=== PATIENT | female | born 1965 | race Caucasian/White ===

== ENCOUNTER → 2016-10-24 | Outpatient (CLI) | payer OTHER ==
--- NOTE | 2016-10-24 17:28 | DX ---
PA and lateral chest x-ray 1604 hours. History: Renal cell cancer on chemotherapy with worsening dyspnea. Evaluate for pneumonitis. Previous history of asthma. Findings: Comparison to July 11, 2016. There has been interval almost complete resolution of bilateral pulmonary nodules previously identifi ed. There is no consolidation, effusion, or pneumothorax. No significant interstitial thickening is s een. Peribronchial markings are normal. PICC line remains in place right arm approach. Heart size and pulmonary vasculature are normal. Osseous structures are unchanged. Impression: 1. Almost complete resolution of previously identified extensive bilateral pulmonary nodules. 2. No underlying interstitial lung disease appreciated.
== END ==
LOC: FIMAGING 15:59
DX: R06.00 Dyspnea, unspecified (principal); C64.9 Malignant neoplasm of unspecified kidney, except renal pelvis

== ENCOUNTER 2016-12-16 06:23 | Day surgery (SDC) | payer OTHER ==
--- NOTE | 2016-12-12 17:11 | GHP ---
[f rep st] PREOP HISTORY AND PHYSICAL DATE OF ADMISSION: 12/16/2016 DATE OF SURGERY: 12/16/2016. HISTORY OF PRESENT ILLNESS: The patient is a 51-year-old woman with left renal cell carcinoma. She has been receiving chemotherapy through a PICC line. She presents at this time for power port plac ement. She is on Eliquis for history of bilateral PEs as prescribed by her oncologist Dr. Sepulveda. PAST MEDICAL HISTORY: Galdamez's esophagus, COPD, depression, type 2 diabetes, fatty liver disease, fibromyalgia, GERD, hyperlipidemia, hypertension, IgA nephropathy, irritable blood bowel syndrome, m etastatic renal cell carcinoma, neuritis, obesity, reactive airway disease, sleep apnea. PAST SURGICAL HISTORY: Left nephrectomy, pilonidal cystectomy. MEDICATIONS: Albuterol, cyclobenzaprine, Dulera, Eliquis, fluoxetine, Lyme, lisinopril, metformin, omeprazole, oxycodone, ProAir, simvastatin. ALLERGIES: Sulfonamide, sulfonylureas. FAMILY HISTORY: She reports a family history of coronary artery disease, strokes, depression, type 2 diabetes, hypertension, lung cancer, osteoporosis. SOCIAL HISTORY: She is a former smoker. She has 4 children. She reports rare alcohol use. She de nies recreational drug use. REVIEW OF SYSTEMS: A 10-point review of systems negative aside from HPI. PHYSICAL EXAMINATION: GENERAL: Well-developed, well-nourished woman in no acute distress. HEENT: Normocephalic, atraumatic. No hearing deficits. Pupils equal and round. No scleral icterus. Muc ous membranes moist. NECK: Trachea midline. LUNGS: Clear to auscultation bilaterally. No increa sed work of breathing. CARDIOVASCULAR: Regular rate and rhythm. No peripheral edema. ABDOMEN: S oft, nondistended, nontender. SKIN: Warm and dry. PSYCHIATRIC: Mood and affect normal. IMPRESSION AND PLAN: The patient is a 51-year-old woman with left renal cell carcinoma who requires a port for chemotherapy. We will attempt a right-sided IJ approach. We discussed the benefit of p ort placement, including easier access for chemotherapy. We discussed risks including but not limit ed to stroke, heart attack, , blood clots, infection, bleeding and pneumothorax. We discussed that if the port becomes infected, it will need to be removed. She had her questions answered to he r satisfaction and wishes to proceed. Bridging of anticoagulation to be discussed with her oncologi st, Dr. Sepulveda. /[id number]/MODL
[~2016-12-16 06:23] MED LIST: ceFAZolin 2 GM/DEXTROSE 100 ML IV ONE
[2016-12-16] MEDS ORDERED: MIDAZOLAM 2 MG/2 ML VIAL ONE (08:31)
[2016-12-16] MEDS ORDERED: fentaNYL 100 MCG/2 ML INJ ONE ×2 (08:38→11:02)
[2016-12-16] MEDS ORDERED: PROPOFOL/EMULSION 500 MG/50 ML BOTTLE IV ONE ×3 (08:39→10:06)
[2016-12-16] MEDS ORDERED: SKIN ADHESIVE (DERMABOND) 1 EACH TP ONE (08:40)
[2016-12-16] MEDS ORDERED: BUPIVACAINE 0.5% 30 ML SDV ONE (08:41)
[2016-12-16] MEDS ORDERED: oxyCODONE IR 5 MG TAB PO PRN (12:03)
--- NOTE | 2016-12-17 15:12 | GOP ---
[f rep st] OPERATIVE REPORT DATE OF OPERATION: 12/16/2016 SURGEON: Zulma Soria MD CERTIFIED ORTHOTIST/PEDORTHIST: Verenice Martinez MD, for technical expertise and timely completion of the case. ANESTHESIA: Monitored anesthesia care with IV sedation. ANESTHESIOLOGIST: Damon Beal MD. PREOPERATIVE DIAGNOSIS: Renal cancer. POSTOPERATIVE DIAGNOSIS: Renal cancer. PROCEDURE PERFORMED: Ultrasound guided left internal jugular PowerPort placement. FINDINGS: Very difficult port placement with difficulty getting the catheter to drop from the innominate into the superior vena cava. Ultimately this was successful. SPECIMENS: None. ESTIMATED BLOOD LOSS: 100 cc. INDICATIONS: The patient is a 51-year-old woman with renal cell carcinoma who requires a port for chemotherapy. DESCRIPTION OF PROCEDURE: The patient was brought into the operating room, placed supine on the table, and monitored anesthesia care with IV sedation was performed. I infiltrated her neck and chest with 0.5% Marcaine prior to making an incision. Under ultrasound guidance, I identified and accessed the left internal jugular vein. This required 3 attempts to get dark return of blood flow. I threaded the wire and removed the needle. I created a pocket to accommodate the port in the left chest. Using several maneuvers I was able to tunnel the catheter up to the insertion site. Under fluoroscopy, I measured the catheter and cut it to size. Next, I placed a dilator and sheath over the wire. I then removed the wire and the dilator. I threaded the catheter through the sheath, but it was not passing into the superior vena cava. I attempted several maneuvers moving her head and shoulder in order to release this. I then removed the catheter. I placed a Glidewire through the sheath and removed the sheath. I then placed a 10-Irish catheter over this area and again tried to direct the catheter through the sheath. Again, this was unsuccessful. I called my colleague Dr. Verenice Martinez to come in and assist. Again, we placed the Glidewire through the sheath and removed the sheath and held pressure. We removed the old port. We obtained a new catheter. I pulled the Glidewire up to the neck incision. Then we placed a longer dilator, over the wire in the neck that was able to come down and make the corner to the SVC easier. The catheter was then threaded through this and the sheath pulled, peeled away. The catheter was in the IVC. I tunneled the catheter to the chest pocket. Then we pulled the catheter back and cut it to size. Next, we connected it to the port in the left chest. I maneuvered the catheter so that the blood would withdraw easily. It was then flushed with heparin. The pocket was closed with 3-0 Vicryl followed by 4-0 Monocryl. The neck incision closed with 4-0 Monocryl. Dermabond applied. She was awakened in the operating room, transferred to PACU in stable condition. The post chest x-ray showed the port in excellent position without evidence of pneumothorax. /[id number]/MODL MTDD
== END 2016-12-16 12:30 | disposition home or self-care (01) ==
LOC: FSGY 06:23
PROVIDERS: ATTEND Surgery
DX: Z45.2 Encounter for adjustment and management of vascular access device (principal); C64.2 Malignant neoplasm of left kidney, except renal pelvis; Z90.5 Acquired absence of kidney; Z86.711 Personal history of pulmonary embolism; Z79.01 Long term (current) use of anticoagulants; Z87.891 Personal history of nicotine dependence
CPT/HCPCS: 36561; 71010; 76001; C1769; C1788; J0690; J2250; J2704; J3010

== ENCOUNTER 2017-01-24 10:42 | Emergency (ER) | payer OTHER ==
[2017-01-24 11:18] LABS: % IMMATURE GRANULYOCYTES 0.3 % (0.0-1.1); ABSOLUTE IMMATURE GRANULOCYTES 0.03 10^3/uL (0.00-0.10); ABSOLUTE NRBC COUNT 0.02 10^3/uL (0-0.01); ADD DIFF? NO; ADD MORPH? NO; ADD SCAN? NO; ATYPICAL LYMPHOCYTE FLAG 10 (0-99); FRAGMENT RBC FLAG 0 (0-99); HEMOGLOBIN 13.1 g/dL (12.6-16.3); LEFT SHIFT FLG 0 (0-99); LIPEMIA HEMOLYSIS FLAG 90 (0-99); MEAN CELL HEMOGLOBIN 31.9 pg (27.9-34.1); MEAN CELL HEMOGLOBIN CONCENTR. 34.5 g/dL (32.4-36.7); MEAN CELL VOLUME 92.5 fL (81.5-99.8); MEAN PLATELET VOLUME 10.1 fL (8.7-11.7); NRBC-AUTO% 0.2 % (0.0-0.2); PLATELET CLUMPS FLAG 0 (0-99); PLATELET COUNT 282 10^3/uL (150-400); RED BLOOD CELL COUNT 4.11 10^6/uL (4.18-5.33); RED CELL DISTRIBUTION WIDTH 13.5 % (11.5-15.2)
--- NOTE | 2017-01-24 11:18 | EDPHY ---
H & P Smoking Status: Former smoker Time Seen by Provider: 01/24/17 10:52 HPI/ROS: CHIEF COMPLAINT: Dyspnea, chest pain HISTORY OF PRESENT ILLNESS: 51-year-old female presents to the emergency department by private vehicle with her complaining of ongoing shortness of breath. Patient has a history of renal cell carcinoma and had her last infusion of immunotherapy 8 days ago. She states that she has a history of asthma as well and sometimes when she has her immunotherapy infusion, she develops an exacerbation of her asthma. She has had ongoing cough. She however has had more pain in her chest and more shortness of breath over last 2- 3 days. No fevers or chills. No abdominal pain. She has cramping in her lower legs. She has had a history of pulmonary embolism 1 year ago and is on Eliquis. REVIEW OF SYSTEMS: Constitutional: No fever, no chills. Eyes: No double or blurry vision. ENT: No sore throat. Respiratory: cough, shortness of breath Cardiac: chest pain. Gastrointestinal: No abdominal pain, vomiting or diarrhea. Genitourinary: No dysuria. Musculoskeletal: No neck or back pain. Skin: No rashes. Neurological: No headache. (Solitario Luis) Past Medical/Surgical History: Renal cell carcinoma, pulmonary embolism, left nephrectomy, asthma, home oxygen at night (Solitario Luis) Social History: (Solitario Luis) Physical Exam: General Appearance: Alert, no distress. 91% on room air. Eyes: Pupils equal and round. Extraocular motions are all intact. ENT: Mouth: Mucous membranes moist. Respiratory: Diffuse expiratory wheezing throughout. No rales. No respiratory distress. Cardiovascular: Regular rate and rhythm. Gastrointestinal: Abdomen is soft and nontender, no masses, no rebound or guarding, bowel sounds normal. Neurological: Alert and oriented x 3, cranial nerves II through XII grossly intact Skin: Warm and dry, no rashes. Musculoskeletal: Nontender to palpate along the cervical, thoracic or lumbar spine. Neck is supple. Extremities: Full range of motion and no peripheral edema. Psychiatric: Patient is oriented X 3, there is no agitation. (Solitario Luis) Constitutional: Initial Vital Signs Temperature (C) 36.5 C 01/24/17 10:48 Heart Rate 80 01/24/17 10:48 Respiratory Rate 22 H 01/24/17 10:48 Blood Pressure 130/62 H 01/24/17 10:48 O2 Sat (%) 91 L 01/24/17 10:48 O2 Delivery Mode Room Air O2 (L/minute) 2 Allergies/Adverse Reactions: aspartame Allergy (Verified 01/24/17 10:45) Hives Sulfa (Sulfonamide Antibiotics) Allergy (Verified 01/24/17 10:45) Unknown Sulfonylureas Allergy (Verified 01/24/17 10:45) Unknown Home Medications: Medication Instructions Recorded Docusate Sodium 12/13/16 Eliquis 12/13/16 FLUOXETINE HCL 12/13/16 LORAZEPAM 12/13/16 Omeprazole 12/13/16 Oxycodone HCl 12/13/16 Prednisone 12/13/16 predniSONE 10 mg PO DAILY 10 Days 01/24/17 Medical Decision Making - Diagnostics Imaging: Discussed imaging studies w/ call specialist Radiologist - Diagnostics EKG Interpretation: 12-lead EKG interpreted by me; official reading is in trace master. My interpretation is sinus rhythm rate 70 no acute ischemic changes. (Kevin Eubanks) Imaging Results: Imaging Impressions Chest/Thorax CTA 01/24/17 11:11 Impression: 1. Chronic scarring in the left lower lobe pulmonary arteries from previous pulmonary emboli without definite acute pulmonary emboli. 2. No aortic aneurysm or dissection. 3. Multiple bilateral pulmonary metastases unchanged since November 2016. 4. No acute pneumonia, pleural effusion, or pneumothorax. Findings discussed with Emergency Department physician's therapist's assistant, Solitario Luis, at 1245 hours, 01/24/2017. Final report concurs with initial preliminary interpretation. A test result has been communicated to a licensed care provider and documented in the [facility] Critical Result system on 01/24/2017 13:49, Message ID [id number]. Extremity Venous Study 01/24/17 13:06 Impression: No deep venous thrombosis bilateral legs. Findings and recommendations discussed with Emergency Department physician, SOLITARIO LUIS at 14:36 hour, 01/24/2017. Final report concurs with initial preliminary interpretation. ED Course/Re-evaluation: 51-year-old female presents feeling short of breath. She has a history of renal cell carcinoma and was sent to the emergency department to rule out possible pulmonary embolism. CT pulmonary angiogram reveals multiple pulmonary nodules which appear the same since November of 2016. No evidence of pulmonary embolism. No pneumonia. The patient was given a DuoNeb as well as albuterol nebulizer and was feeling much better. I spoke with Dr. Sepulveda's therapist's assistant, Nicole, and after talking with Dr. Sepulveda , he recommended taper dose of prednisone 50 mg x2 days, 40 mg x2 days, 30 mg and 2 days, 20 mg x2 days and then 10 mg x2 days. She will follow up in Dr. Sepulveda office this week to recheck. She was instructed to return if she developed pain in her chest, difficulty breathing, fever, or if she felt worse in any way. I do not think antibiotics are indicated. She is afebrile without any evidence clinically or radiographically of pneumonia. (Solitario Luis) Differential Diagnosis: Shortness of breath including but not limited to pulmonary infectious process, COPD, asthma, pulmonary embolus and congestive heart failure. (Solitario Luis) - Data Points Laboratory Results: Laboratory Results 01/24/17 11:00 01/24/17 11:00 01/24/17 01/24/17 01/24/17 11:01 11:00 11:00 WBC 11.06 10^3/uL H 10^3/uL (3.80-9.50) RBC 4.11 10^6/uL L 10^6/uL (4.18-5.33) Hgb 13.1 g/dL g/dL (12.6-16.3) POC Hgb 13.6 gm/dL gm/dL (12.3-15.9) Hct 38.0 % % (38.0-47.0) POC Hct 40 % % (35.5-47.5) MCV 92.5 fL fL (81.5-99.8) MCH 31.9 pg pg (27.9-34.1) MCHC 34.5 g/dL g/dL (32.4-36.7) RDW 13.5 % % (11.5-15.2) Plt Count 282 10^3/uL 10^3/uL (150-400) MPV 10.1 fL fL (8.7-11.7) Neut % (Auto) 51.7 % % (39.3-74.2) Lymph % (Auto) 31.7 % % (15.0-45.0) [place] % (Auto) 6.7 % % (4.5-13.0) Eos % (Auto) 9.0 % H % (0.6-7.6) Baso % (Auto) 0.6 % % (0.3-1.7) Nucleat RBC Rel Count 0.2 % % (0.0-0.2) Absolute Neuts (auto) 5.71 10^3/uL 10^3/uL (1.70-6.50) Absolute Lymphs (auto) 3.51 10^3/uL H 10^3/uL (1.00-3.00) Absolute Monos (auto) 0.74 10^3/uL 10^3/uL (0.30-0.80) Absolute Eos (auto) 1.00 10^3/uL H 10^3/uL (0.03-0.40) Absolute Basos (auto) 0.07 10^3/uL 10^3/uL (0.02-0.10) Absolute Nucleated RBC 0.02 10^3/uL H 10^3/uL (0-0.01) Immature Gran % 0.3 % % (0.0-1.1) Immature Gran # 0.03 10^3/uL 10^3/uL (0.00-0.10) POC Sodium 142 mEq/L mEq/L (134-144) Sodium 141 mEq/L mEq/L (134-144) POC Potassium 4.1 mEq/L mEq/L (3.3-5.0) Potassium 4.3 mEq/L mEq/L (3.5-5.2) POC Chloride 105 mEq/L mEq/L (96-108) Chloride 105 mEq/L mEq/L (97-110) Carbon Dioxide 23 mEq/l mEq/l (22-31) Anion Gap 13 mEq/L mEq/L (8-16) POC BUN 17 mg/dL mg/dL (7-23) BUN 17 mg/dL mg/dL (7-23) Creatinine 0.8 mg/dL mg/dL (0.6-1.0) POC Creatinine 0.8 mg/dL mg/dL (0.6-1.2) Estimated GFR > 60 Glucose 123 mg/dL H mg/dL (70-100) POC Glucose 125 mg/dL H mg/dL (70-100) Calcium 9.2 mg/dL mg/dL (8.5-10.4) Medications Given: Discontinued Medications Albuterol (Proventil Neb) 3 ml IH EDNOW ONE Stop: 01/24/17 13:52 Last Admin: 01/24/17 14:07 Dose: 3 ml Albuterol/Ipratropium (Duoneb) 3 ml IH EDNOW ONE Stop: 01/24/17 11:47 Last Admin: 01/24/17 11:59 Dose: 3 ml Heparin Sodium (Porcine) (Heparin Lock Flush) 500 unit IVP EDNOW ONE Stop: 01/24/17 14:56 Last Admin: 01/24/17 14:56 Dose: 500 unit Point of Care Test Results: 01/24/17 11:01 POC Sodium 142 POC Potassium 4.1 POC Chloride 105 POC BUN 17 POC Creatinine 0.8 POC Glucose 125 H Departure - Departure Disposition: Home, Routine, Self-Care Clinical Impression: Dyspnea Qualifiers: Dyspnea type: unspecified Qualified Code(s): R06.00 - Dyspnea, unspecified Condition: Good Instructions: Dyspnea (ED) Additional Instructions: Prednisone 50 mg for 2 days, 40 mg for 2 days, 30 mg for 2 days, 20 mg for 2 days, 10 mg for 2 days. Follow up with Dr. Sepulveda. Return to the emergency department if you feel short of breath or if you feel worse in any way. Referrals: Guanaco Sepulveda MD [Medical Doctor] - As per Instructions Prescriptions: predniSONE 10 mg PO DAILY 10 Days
--- NOTE | 2017-01-24 11:19 | CPEKG ---
Heart Rate: 70 RR Interval: 857 P-R Interval: 168 QRSD Interval: 82 QT Interval: 388 QTC Interval: 419 P [place]: 4 QRS [place]: 37 T Wave [place]: 48 EKG Severity - NORMAL ECG - EKG Impression: SINUS RHYTHM Electronically Signed By: Kevin Eubanks 24-Jan-2017 11:49:56
[2017-01-24 11:31] LABS: ANION GAP 13 mEq/L (8-16); CALCIUM 9.2 mg/dL (8.5-10.4); CARBON DIOXIDE 23 mEq/l (22-31); CHLORIDE 105 mEq/L (97-110); CREATININE 0.8 mg/dL (0.6-1.0); GLOMERULAR FILTRATION RATE > 60; GLUCOSE 123 mg/dL (70-100); POTASSIUM 4.3 mEq/L (3.5-5.2); SODIUM 141 mEq/L (134-144)
[2017-01-24] MEDS ORDERED: IOPAMIDOL (ISOVUE 370) 100 ML BTL IV ONE (11:42)
[2017-01-24] MEDS ORDERED: IPRATROPIUM/ALBUTEROL 3 ML DEYVIAL IH ONE (11:46)
[2017-01-24] MEDS ORDERED: ALBUTEROL 3 ML DEYVIAL IH ONE (13:51)
[2017-01-24 14:25] VITALS: BP 130/88; RESP 16
[2017-01-24 15:06] VITALS: PULSE 87; TEMP 98.2; O2SAT 95
== END 2017-01-24 15:07 | disposition home or self-care (01) ==
DX: R06.00 Dyspnea, unspecified (principal); J45.909 Unspecified asthma, uncomplicated; Z79.01 Long term (current) use of anticoagulants; Z87.891 Personal history of nicotine dependence
CPT/HCPCS: 82947-QW; 96374; J1642; Q9967

== ENCOUNTER → 2017-02-08 | Outpatient (CLI) | payer OTHER ==
[~2017-02-08] MED LIST changes: +GADOBUTROL 10 ML VIAL IVP ONE; -ceFAZolin 2 GM/DEXTROSE 100 ML IV ONE
== END ==
LOC: FIMAGING 17:34
PROVIDERS: ATTEND Internal Medicine Hematology & Oncology
DX: Z12.89 Encounter for screening for malignant neoplasm of other sites (principal); M54.6 Pain in thoracic spine; M54.5 Low back pain; C64.1 Malignant neoplasm of right kidney, except renal pelvis; C64.2 Malignant neoplasm of left kidney, except renal pelvis
CPT/HCPCS: A9585

== ENCOUNTER → 2017-03-27 | Outpatient (CLI) | payer OTHER | LOC: FIMAGING 06:40 | PROVIDERS: ATTEND Internal Medicine Hematology & Oncology | DX: E23.6 Other disorders of pituitary gland (principal); J32.8 Other chronic sinusitis; C64.9 Malignant neoplasm of unspecified kidney, except renal pelvis | CPT/HCPCS: A9585 ==

== ENCOUNTER 2017-05-30 20:50 | Emergency (ER) | payer OTHER ==
[2017-05-30 21:03] VITALS: PULSE 85
[2017-05-30] MEDS ORDERED: IPRATROPIUM/ALBUTEROL 3 ML DEYVIAL IH ONE (21:47)
[2017-05-30 21:56] LABS: % IMMATURE GRANULYOCYTES 0.4 % (0.0-1.1); ABSOLUTE IMMATURE GRANULOCYTES 0.05 10^3/uL (0.00-0.10); ADD DIFF? NO; ADD MORPH? NO; ADD SCAN? NO; ATYPICAL LYMPHOCYTE FLAG 0 (0-99); FRAGMENT RBC FLAG 10 (0-99); HEMATOCRIT 37.8 % (38.0-47.0); HEMOGLOBIN 12.7 g/dL (12.6-16.3); LEFT SHIFT FLG 0 (0-99); LIPEMIA HEMOLYSIS FLAG 80 (0-99); MEAN CELL HEMOGLOBIN 31.8 pg (27.9-34.1); MEAN CELL HEMOGLOBIN CONCENTR. 33.6 g/dL (32.4-36.7); MEAN CELL VOLUME 94.7 fL (81.5-99.8); PLATELET CLUMPS FLAG 10 (0-99); PLATELET COUNT 327 10^3/uL (150-400); RED BLOOD CELL COUNT 3.99 10^6/uL (4.18-5.33); RED CELL DISTRIBUTION WIDTH 13.2 % (11.5-15.2)
--- NOTE | 2017-05-30 22:00 | EDPHY ---
H & P Stated Complaint: cough x1 week, sore throat, SOB- fever today Time Seen by Provider: 05/30/17 21:22 HPI/ROS: CHIEF COMPLAINT: Cough, fever HISTORY OF PRESENT ILLNESS: The patient is a 52-year-old female with a history of renal cell carcinoma that is currently stabilized. She is on immunosuppressive therapy with hydrocortisone and Nivolumab. She states that over the last 3-4 days she has had an increasing cough and today developed a fever of 101.4. She has a history of asthma and has been using her albuterol. She denies chest pain. She denies a pain. She denies headache. She does have a history of PE provoked by surgery 1 year ago and is on Eliquis. She is concerned for pneumonia again. She took Tylenol prior to coming. REVIEW OF SYSTEMS: Constitutional: denies: chills, fever, recent illness, recent injury EENTM: denies: blurred vision, double vision, nose congestion Respiratory: denies: cough, shortness of breath Cardiac: denies: chest pain, irregular heart rate, lightheadedness, palpitations Gastrointestinal/Abdominal: denies: abdominal pain, diarrhea, nausea, vomiting, blood streaked stools Genitourinary: denies: dysuria, frequency, hematuria, pain Musculoskeletal: denies: joint pain, muscle pain Skin: denies: lesions, rash, jaundice, bruising Neurological: denies: headache, numbness, paresthesia, tingling, dizziness, weakness Hematologic/Lymphatic: denies: blood clots, easy bleeding, easy bruising Immunologic/allergic: denies: HIV/AIDS, transplant EXAM: GENERAL: Well-appearing, well-nourished and in no acute distress. HEAD: Atraumatic, normocephalic. EYES: Pupils equal round and reactive to light, extraocular movements intact, sclera anicteric, conjunctiva are normal. ENT: TMs normal, nares patent, oropharynx clear without exudates. Moist mucous membranes. NECK: Normal range of motion, supple without lymphadenopathy or JVD. LUNGS: Bilateral wheezes HEART: Regular rate and rhythm without murmurs, rubs or gallops. ABDOMEN: Soft, nontender, normoactive bowel sounds. No guarding, no rebound. No masses appreciated. BACK: No CVA tenderness, no spinal tenderness, step-offs or deformities EXTREMITIES: Normal range of motion, no pitting or edema. No clubbing or cyanosis. NEUROLOGICAL: Cranial nerves II through XII grossly intact. Normal speech, normal gait. 5/5 strength, normal movement in all extremities, normal sensation PSYCH: Normal mood, normal affect. SKIN: Warm, dry, normal turgor, no visible rashes or lesions. Source: Patient Exam Limitations: No limitations - Personal History LMP (Females 10-55): Post Menopausal - Medical/Surgical History Hx Asthma: Yes Hx Chronic Respiratory Disease: No Hx Diabetes: No Hx Cardiac Disease: No Hx Renal Disease: No Hx Cirrhosis: No Hx Alcoholism: No Hx HIV/AIDS: No Hx Splenectomy or Spleen Trauma: No Other PMH: renal cancer/barretts esophagus. stage 4 renal cancer- mets in lungs. asthma - Family History Significant Family History: No pertinent family hx - Social History Smoking Status: Former smoker Alcohol Use: Sober Drug Use: None Constitutional: Initial Vital Signs Temperature (C) 37.4 C 05/30/17 20:59 Heart Rate 85 05/30/17 20:59 Respiratory Rate 20 05/30/17 20:59 Blood Pressure 162/91 H 05/30/17 20:59 O2 Sat (%) 90 L 05/30/17 20:59 O2 Delivery Mode Nasal Cannula O2 (L/minute) 3 Allergies/Adverse Reactions: aspartame Allergy (Verified 01/24/17 10:45) Hives Sulfa (Sulfonamide Antibiotics) Allergy (Verified 01/24/17 10:45) Unknown Sulfonylureas Allergy (Verified 01/24/17 10:45) Unknown Home Medications: Medication Instructions Recorded Docusate Sodium 12/13/16 Eliquis 12/13/16 FLUOXETINE HCL 12/13/16 LORAZEPAM 12/13/16 Omeprazole 12/13/16 Oxycodone HCl 12/13/16 Prednisone 12/13/16 predniSONE 10 mg PO DAILY 10 Days 01/24/17 Albuterol 05/30/17 Azithromycin 250 mg PO DAILY #4 tablet 05/30/17 Hydrocortisone 05/30/17 Medical Decision Making - Diagnostics Imaging Results: Imaging Impressions Chest X-Ray 05/30/17 21:47 Impression: No acute findings in the chest. X-ray: chest x-ray was obtained. I viewed the images myself on the PACS system. My interpretation of the images is: negative for acute disease . The radiologist interpretation is pending. Imaging: I viewed and interpreted images myself ED Course/Re-evaluation: 9:55 p.m. the patient's x-ray and lab work is reassuring. She is saturating 94 % on room air. She does diffuse wheezes. I will treat her with another albuterol treatment and start her on azithromycin for likely bronchitis versus pneumonia. Her white blood cell count is slightly elevated which she would expect with her chronic steroid use. She will follow up with Dr. Sepulveda the next few days. I did offer angulo for her monitoring dinner has declined this. We discussed indications for returning. Differential Diagnosis: Partial list of the Differential diagnosis considered include but were not limited to; bronchitis, pneumonia and although unlikely based on the history and physical exam, I also considered allergic reaction, sepsis, PE. I discussed these differential diagnoses and the plan with the patient as well as the usual and expected course. The patient understands that the diagnosis is provisional and that in medicine we are not always correct and that further workup is often warranted. Usual and customary warnings were given. All of the patient's questions were answered. The patient was instructed to return to the emergency department should the symptoms at all worsen or return, otherwise to followup with the physician as we discussed. - Data Points Laboratory Results: Laboratory Results 05/30/17 21:46 05/30/17 21:46 05/30/17 05/30/17 05/30/17 21:46 21:46 21:46 WBC 13.36 10^3/uL H 10^3/uL (3.80-9.50) RBC 3.99 10^6/uL L 10^6/uL (4.18-5.33) Hgb 12.7 g/dL g/dL (12.6-16.3) Hct 37.8 % L % (38.0-47.0) MCV 94.7 fL fL (81.5-99.8) MCH 31.8 pg pg (27.9-34.1) MCHC 33.6 g/dL g/dL (32.4-36.7) RDW 13.2 % % (11.5-15.2) Plt Count 327 10^3/uL 10^3/uL (150-400) MPV 10.0 fL fL (8.7-11.7) Neut % (Auto) 72.2 % % (39.3-74.2) Lymph % (Auto) 15.9 % % (15.0-45.0) [place] % (Auto) 6.6 % % (4.5-13.0) Eos % (Auto) 4.5 % % (0.6-7.6) Baso % (Auto) 0.4 % % (0.3-1.7) Nucleat RBC Rel Count 0.0 % % (0.0-0.2) Absolute Neuts (auto) 9.65 10^3/uL H 10^3/uL (1.70-6.50) Absolute Lymphs (auto) 2.13 10^3/uL 10^3/uL (1.00-3.00) Absolute Monos (auto) 0.88 10^3/uL H 10^3/uL (0.30-0.80) Absolute Eos (auto) 0.60 10^3/uL H 10^3/uL (0.03-0.40) Absolute Basos (auto) 0.05 10^3/uL 10^3/uL (0.02-0.10) Absolute Nucleated RBC 0.00 10^3/uL 10^3/uL (0-0.01) Immature Gran % 0.4 % % (0.0-1.1) Immature Gran # 0.05 10^3/uL 10^3/uL (0.00-0.10) APTT 29.8 SEC SEC (23.0-38.0) VBG Lactic Acid Sodium 138 mEq/L mEq/L (134-144) Potassium 3.9 mEq/L mEq/L (3.5-5.2) Chloride 100 mEq/L mEq/L (97-110) Carbon Dioxide 24 mEq/l mEq/l (22-31) Anion Gap 14 mEq/L mEq/L (8-16) BUN 19 mg/dL mg/dL (7-23) Creatinine 1.1 mg/dL H mg/dL (0.6-1.0) Estimated GFR 52 Glucose 113 mg/dL H mg/dL (70-100) Calcium 9.6 mg/dL mg/dL (8.5-10.4) Total Bilirubin 0.5 mg/dL mg/dL (0.1-1.4) 09/05/17 21:46 WBC RBC Hgb Hct MCV MCH MCHC RDW Plt Count MPV Neut % (Auto) Lymph % (Auto) [place] % (Auto) Eos % (Auto) Baso % (Auto) Nucleat RBC Rel Count Absolute Neuts (auto) Absolute Lymphs (auto) Absolute Monos (auto) Absolute Eos (auto) Absolute Basos (auto) Absolute Nucleated RBC Immature Gran % Immature Gran # APTT VBG Lactic Acid 1.6 mmol/L mmol/L (0.7-2.1) Sodium Potassium Chloride Carbon Dioxide Anion Gap BUN Creatinine Estimated GFR Glucose Calcium Total Bilirubin Medications Given: Discontinued Medications Albuterol/Ipratropium (Duoneb) 3 ml IH EDNOW ONE Stop: 05/30/17 21:48 Last Admin: 05/30/17 22:05 Dose: 3 ml Azithromycin (Zithromax) 500 mg PO EDNOW ONE PRN Reason: Protocol Stop: 05/30/17 22:54 Last Admin: 05/30/17 22:57 Dose: 500 mg Heparin Sodium (Porcine) (Heparin Lock Flush) 500 unit IVP EDNOW ONE Stop: 05/30/17 23:01 Last Admin: 05/30/17 23:03 Dose: 500 unit Departure - Departure Disposition: Home, Routine, Self-Care Clinical Impression: Exacerbation of asthma Acute bronchitis Qualifiers: Bronchitis organism: other organism Qualified Code(s): J20.8 - Acute bronchitis due to other specified organisms Condition: Fair Instructions: Asthma (ED), Acute Bronchitis (ED) Referrals: Guanaco Sepulveda MD [Primary Care Provider] - As per Instructions Prescriptions: Azithromycin 250 mg PO DAILY #4 tablet
[2017-05-30 22:10] LABS: ANION GAP 14 mEq/L (8-16); BILIRUBIN,TOTAL 0.5 mg/dL (0.1-1.4); CALCIUM 9.6 mg/dL (8.5-10.4); CARBON DIOXIDE 24 mEq/l (22-31); CHLORIDE 100 mEq/L (97-110); CREATININE 1.1 mg/dL (0.6-1.0); GLOMERULAR FILTRATION RATE 52; GLUCOSE 113 mg/dL (70-100); POTASSIUM 3.9 mEq/L (3.5-5.2); SODIUM 138 mEq/L (134-144)
[2017-05-30 22:53] VITALS: BP 147/76; RESP 16; TEMP 98.6; O2SAT 95
[2017-05-30] MEDS ORDERED: AZITHROMYCIN 250 MG TAB PO ONE (22:53)
== END 2017-05-30 23:09 | disposition home or self-care (01) ==
DX: J45.901 Unspecified asthma with (acute) exacerbation (principal); J20.8 Acute bronchitis due to other specified organisms; Z79.01 Long term (current) use of anticoagulants; Z85.528 Personal history of other malignant neoplasm of kidney; Z87.891 Personal history of nicotine dependence
CPT/HCPCS: J1642

== ENCOUNTER → 2017-11-01 | Outpatient (CLI) | payer OTHER | LOC: FIMAGING 10:56 | PROVIDERS: ATTEND Nurse Practitioner | DX: R05 Cough (principal); R06.2 Wheezing ==

== ENCOUNTER → 2018-03-21 | Outpatient (CLI) | payer OTHER | LOC: FIMAGING 07:18 | PROVIDERS: ATTEND Internal Medicine Hematology & Oncology | DX: J32.9 Chronic sinusitis, unspecified (principal); Z85.528 Personal history of other malignant neoplasm of kidney | CPT/HCPCS: 82565-PO; A9585; J1642 ==

== ENCOUNTER → 2018-07-18 | Outpatient (CLI) | payer OTHER | LOC: FIMAGING 09:05 | PROVIDERS: ATTEND Internal Medicine Hematology & Oncology | DX: C64.2 Malignant neoplasm of left kidney, except renal pelvis (principal); Z90.5 Acquired absence of kidney; Z85.528 Personal history of other malignant neoplasm of kidney; R93.7 Abnormal findings on diagnostic imaging of other parts of musculoskeletal system | CPT/HCPCS: 78306; A9503 ==

== ENCOUNTER → 2018-07-30 | Outpatient (CLI) | payer OTHER | LOC: FIMAGING 13:48 | PROVIDERS: ATTEND Internal Medicine Hematology & Oncology | DX: C79.51 Secondary malignant neoplasm of bone (principal); Z85.528 Personal history of other malignant neoplasm of kidney ==

== ENCOUNTER → 2018-11-02 | Outpatient (CLI) | payer OTHER | LOC: FIMAGING 11:26 | PROVIDERS: ATTEND Internal Medicine Hematology & Oncology | DX: C64.1 Malignant neoplasm of right kidney, except renal pelvis (principal); C64.2 Malignant neoplasm of left kidney, except renal pelvis; R53.83 Other fatigue; H53.8 Other visual disturbances; C79.51 Secondary malignant neoplasm of bone; J32.2 Chronic ethmoidal sinusitis; J32.0 Chronic maxillary sinusitis | CPT/HCPCS: 82565-PO; A9585; J1642 ==